=== PATIENT | male | born 1995 | race Caucasian/White ===

== ENCOUNTER 2023-01-28 23:48 | Emergency (ER) | payer SELFPAY ==
[2023-01-28 23:57] VITALS: BMI 33.9
[2023-01-29 01:30] VITALS: BP 126/84; PULSE 70; RESP 17; TEMP 98.6
== END 2023-01-29 02:51 | disposition home or self-care (01) ==
LOC: JER 23:48
PROC: 0HQGXZZ Repair Left Hand Skin, External Approach (ICD-10-PCS; principal; 2023-01-28)
DX: S61.411A Laceration without foreign body of right hand, initial encounter (principal); W26.0XXA Contact with knife, initial encounter
CPT/HCPCS: 73130-TC-LT-FY; 99283-25